=== PATIENT | male | born 1945 ===

== ENCOUNTER → 2024-01-27 | Day surgery (SDC) | payer OTHER ==
[~2024-01-27] VITALS: Ht 180.3 cm; Wt 93.0 kg
[~2024-01-27] MED LIST: CARVEDILOL6.25 MG; CEFTRIAXONE SODIUM 2,000 MG VIAL IV ONE; CEFTRIAXONE SODIUM 2,000 MG VIAL ONE; COLACE100 MG PO; COZAAR100 MG PO; DIBUCAINE 30 GM TUBE ONE; DIBUCAINE 30 GM TUBE RECTAL ONE; HEMOSTATIC MATRIX 1 KIT KIT TOP ONE; HEMOSTATIC MATRIX WITH THROMBIN KIT TOP ONE; LIPITOR40 MG PO; METRONIDAZOLE/SODIUM CHLORIDE 500 MG/100 ML PIGGYBACK IV ONE; NEURONTIN300 MG PO; NORVASC5 MG PO; PLAVIX75 MG PO; POVIDONE-IODINE 118 ML BOTT TOP ONE; TRAM1TAB98 PO
== END | disposition home or self-care (01) ==
LOC: ADM 01-19 11:45 → CIR.AMB 05:10
PROVIDERS: ATTEND Surgery
DX: K62.89 Other specified diseases of anus and rectum (principal); Z85.040 Personal history of malignant carcinoid tumor of rectum; Z88.6 Allergy status to analgesic agent; E78.5 Hyperlipidemia, unspecified